=== PATIENT | female | born 1985 | race Two or more races ===

== ENCOUNTER 2018-10-19 08:39 | Emergency (ER) | payer OTHER ==
[~2018-10-19] VITALS: Ht 154.9 cm; Wt 51.3 kg
[2018-10-19] MEDS ORDERED: Dexamethasone 4mg/ml vial IVP ONE (09:15)
[2018-10-19] MEDS ORDERED: Acetaminophen 500mg (ES) tab ORAL ONE (09:15)
[2018-10-19] MEDS ORDERED: Ketorolac 60mg Inj IM ONE (09:15)
[2018-10-19] MEDS ORDERED: Metoclopramide 10mg/2ml Inj IM ONE (09:15)
[2018-10-19] MEDS ORDERED: RIBOFLAVIN100 MG PO (09:15)
[2018-10-19] MEDS ORDERED: Metoprolol Succinate XL 25mg tab ORAL ONE (09:15)
--- NOTE | 2018-10-19 09:16 | Emergency Room Report ---
History of Present Illness General Chief Complaint: Headache Source: Patient Present Illness HPI 33-year-old female presents with headache that started 4 days ago gradual in onset, not worse in the recumbent position no known aggravating relieving factors, severity is mild symptoms are constant, she does endorse an ache of her forehead, she denies any fevers chills chest pain shortness of breath no neck stiffness, patient states she also has the cyst on her forehead and in her hair she states they have been there for 3 years and 1 of them looked at, no pus or drainage. Patient presents for evaluation Allergies: Coded Allergies: No Known Allergies (Unverified , 10/19/18) Patient History Past Medical History: see triage record Last Menstrual Period: 08/2018 Now: No : 2 Para: 2 Reviewed Nursing Documentation: PMH: Agreed; PSxH: Agreed Nursing Documentation-PMH Hx Cardiac Problems: Yes - CHF Hx Hypertension: Yes Review of Systems All Other Systems: negative except mentioned in HPI Physical Exam Vital Signs Date Time Temp Pulse Resp B/P (MAP) Pulse Ox O2 Delivery O2 Flow Rate FiO2 10/19/18 08:51 97.5 120 18 125/95 (105) 98 Room Air Sp02 EP Interpretation: reviewed, normal General Appearance: well appearing, no apparent distress, alert Head: normocephalic, atraumatic Eyes: bilateral eye PERRL, bilateral eye EOMI ENT: uvula midline, moist mucus membranes Neck: supple, thyroid normal, supple/symm/no masses Respiratory: lungs clear, no respiratory distress, no retraction, no accessory muscle use Cardiovascular #1: normal peripheral pulses, no edema, no gallop, no murmur, tachycardia Gastrointestinal: non tender, soft, no guarding, no rebound Musculoskeletal: normal inspection Neurologic: alert, oriented x3 Psychiatric: mood/affect normal Skin: no rash, warm/dry, other - 1 cm cyst on her forehead that is mobile, not hard, soft, another cyst located right scalp 1.5 cm mobile slightly tender to palpation Medical Decision Making Diagnostic Impression: Primary Impression: Headache Qualified Codes: R51 - Headache Additional Impression: Cyst ER Course Based on the patient's history and physical there is very low clinical suspicion for significant intracranial pathology. There are no red flags of DOSS, not sudden in onset, not maximal in onset, no acute neurological findings, no fever with head stiffness. Low suspicion for subarachnoid hemorrhage, encephalitis, meningitis. Patient given headache cocktail Patient with elevated HR, patient states she did not take her metoprolol today. Patient given metoprolol in ER. Dispo home w/ return precautions Last Vital Signs Date Time Temp Pulse Resp B/P (MAP) Pulse Ox O2 Delivery O2 Flow Rate FiO2 10/19/18 08:51 97.5 120 18 125/95 (105) 98 Room Air Disposition: HOME, SELF-CARE Condition: Stable Scripts Riboflavin (RIBOFLAVIN) 100 Mg Tablet 400 MG PO DAILY, #90 TAB Prov: Mirza Woodson MD 10/19/18 Referrals: [facility],REFERRING (PCP) [facility]. [facility] Patient Instructions: General Headache Without Cause Additional Instructions: The patient was provided with discharge instructions, notified to follow-up with a primary care doctor and or specialist in the next 24-48 hours, and to return to the ED if they have worsening of their symptoms. Please note that this report is being documented using [employer] technology. This can lead to erroneous entry secondary to incorrect interpretation by the dictating instrument. PLEASE FOLLOW-UP WITH NEUROLOGY AND DERMATOLOGY Mirza Quesada MD Oct 19, 2018 09:16
--- NOTE | 2018-10-19 10:20 | NUR ---
ER DISCHARGE NOTE: Patient is cleared to be discharged per ERMD, pt is aox4, on room air, with stable vital signs. pt was given dc and prescription instructions, pt was able to verbalize understanding. pt is able to ambulate with steady gait. pt took all belongings.
[2018-10-19 11:13] VITALS: BP 125/95
[2018-10-19 11:24] VITALS: BP 116/87
== END 2018-10-19 10:20 | disposition home or self-care (01) ==
LOC: EMR 08:56
DX: R51 Headache (principal)
CPT/HCPCS: 81025; 96372; 96374; J1100; J2765; Z7502; 99284

== ENCOUNTER 2018-10-27 00:21 | Emergency (ER) | payer OTHER ==
[~2018-10-27] VITALS: Ht 154.9 cm; Wt 52.2 kg
[~2018-10-27 00:21] MED LIST: RIBOFLAVIN100 MG PO
--- NOTE | 2018-10-27 00:35 | NUR ---
ED Nurse Note: RECIEVED PT FROM HOME, HERE WITH C/O ABD PAIN AND SWELLING, PT HAS HX OF CHF AND LIVER ENLARGEMENT, DENIES CP, NO SOB OR LABORED BREATHING, PT GOWNED AND PLACED ON CARDIAC MONITORING, WILL RESUME CARE ORDERED AND CLOSELY MONITOR.
[2018-10-27] MEDS ORDERED: Ketorolac 30mg Inj IV ONE (01:00)
[2018-10-27 01:13] LABS: APPEARANCE,URINE CLEAR; BILIRUBIN, URINE NEGATIVE (NEGATIVE); GLUCOSE, URINE (UA) NEGATIVE (NEGATIVE); KETONES,URINE NEGATIVE (NEGATIVE); LEUKOCYTE ESTERASE ,URINE NEGATIVE (NEGATIVE); NITRITE,URINE NEGATIVE (NEGATIVE); PH,URINE 7 (4.5-8.0); PROTEIN,URINE NEGATIVE (NEGATIVE); UROBILINOGEN,URINE 4 MG/DL (0.0-1.0)
[2018-10-27 01:15] VITALS: BP 129/78
[2018-10-27 01:16] LABS: COLOR,URINE YELLOW
[2018-10-27 01:26] LABS: EOSINOPHILS % (AUTO) 1.4 % (0.0-3.0); HEMOGLOBIN 12.6 G/DL (12.0-16.0); LYMPHOCYTES % (AUTO) 18.6 % (20.0-45.0); MEAN CORPUSCULAR VOLUME 83 FL (80-99); MONOCYTES % (AUTO) 8.4 % (1.0-10.0); NEUTROPHILS % (AUTO) 70.6 % (45.0-75.0); PLATELET COUNT 302 K/UL (150-450); RED BLOOD COUNT 4.95 M/UL (4.20-5.40); RED CELL DISTRIBUTION WIDTH 17.2 % (11.6-14.8); WHITE BLOOD COUNT 7.9 K/UL (4.8-10.8)
--- NOTE | 2018-10-27 01:30 | Emergency Room Report ---
History of Present Illness General Chief Complaint: General Complaint Source: Patient Present Illness HPI 33-year-old female with a history of cirrhosis. She had a history of methamphetamine abuse but says she stopped for a long time now. She presents with chief complaint of abdominal pain. Pain is to the right back and upper quadrant area. She been told that she has a very enlarged liver. Pain is been ongoing for 4 weeks. She was here last week but did not mention it. No nausea no vomiting. No fever chills the pain is 8 out of 10. Nothing made it better. Nothing made it worse.. No urinary complaint. Allergies: Coded Allergies: No Known Allergies (Unverified , 10/19/18) Patient History Past Medical History: see triage record, old chart reviewed Past Surgical History: other Pertinent Family History: none Social History: Reports: drug use Last Menstrual Period: 08/21/18 Now: No Immunizations: other Reviewed Nursing Documentation: PMH: Agreed; PSxH: Agreed Nursing Documentation-PMH Past Medical History: No History, Except For Hx Hypertension: Yes Review of Systems Eye: Denies: eye pain, blurred vision ENT: Denies: ear pain, nose congestion, throat swelling Respiratory: Denies: cough, shortness of breath Cardiovascular: Denies: chest pain, palpitations Gastrointestinal: Reports: abdominal pain; Denies: diarrhea, nausea, vomiting Musculoskeletal: Denies: back pain, joint pain Skin: Denies: rash Neurological: Denies: headache, numbness Endocrine: Denies: increased thirst, increased urine Hematologic/Lymphatic: Denies: easy bruising All Other Systems: negative except mentioned in HPI Physical Exam Vital Signs Date Time Temp Pulse Resp B/P (MAP) Pulse Ox O2 Delivery O2 Flow Rate FiO2 10/27/18 00:23 98.1 118 19 122/84 (97) 96 Room Air Vitals with tachycardia Sp02 EP Interpretation: reviewed, normal General Appearance: no apparent distress, alert, thin Head: normocephalic, atraumatic Eyes: bilateral eye PERRL, bilateral eye EOMI, bilateral eye Scleral Injection ENT: hearing grossly normal, normal pharynx Neck: full range of motion, supple, no meningismus Respiratory: chest non-tender, lungs clear, normal breath sounds Cardiovascular #1: regular rate, rhythm, no murmur Gastrointestinal: normal bowel sounds, no mass, no bruit, non-distended, tenderness - Right upper quadrant, hepatomegaly Musculoskeletal: back normal, gait/station normal, normal range of motion Psychiatric: mood/affect normal Medical Decision Making Diagnostic Impression: Primary Impression: Abdominal pain Qualified Codes: R10.84 - Generalized abdominal pain Additional Impressions: Ascites of liver Methamphetamine abuse ER Course This patient presents with abdominal pain. She does have ascites and a very large liver. This most likely causing her pain. She does have cholelithiasis. She said she had a 2 cm gallstone. Bedside ultrasound confirmed. No evidence of cholecystitis. No evidence of any obstruction from the gallstone. She is seeing a liver specialist at [facility]. She still positive for amphetamine even though she denied using it for 2 years. Patient also noted that she has jaundice. Will send her home with labs that she can take to her doctor. CT/MRI/US Diagnostic Results CT/MRI/US Diagnostic Results : Imaging Test Ordered: CT abdomen and pelvis Impression Read by radiologist. Hepatomegaly measuring 20.6 cm. Gallstone. Cardiomegaly with anasarca. Ascites. Last Vital Signs Date Time Temp Pulse Resp B/P (MAP) Pulse Ox O2 Delivery O2 Flow Rate FiO2 10/27/18 00:23 98.1 118 19 122/84 (97) 96 Room Air Status: improved Disposition: HOME, SELF-CARE Condition: Stable Scripts Tramadol Hcl* (ULTRAM*) 50 Mg Tablet 50 MG ORAL Q6H PRN for For Pain, #12 TAB 0 Refills Prov: Yvan Hernandez MD 10/27/18 Additional Instructions: Follow-up with your doctor in 7 days. Return if symptoms worsen. Abstain from drugs and alcohol. Yvan Hernandez MD Oct 27, 2018 01:30
[2018-10-27 01:33] LABS: BLOOD UREA NITROGEN 22 mg/dL (7-18); CHLORIDE 100 MMOL/L (98-107); CREATININE 1.1 MG/DL (0.55-1.30); POTASSIUM 3.9 MMOL/L (3.5-5.1); SODIUM 136 MMOL/L (136-145)
[2018-10-27 01:35] LABS: ANION GAP 9 mmol/L (5-15); CALCIUM 8.4 MG/DL (8.5-10.1); CARBON DIOXIDE 27 MMOL/L (21-32); INR 1.4 (0.9-1.1)
[2018-10-27 01:43] LABS: ALANINE AMINOTRANSFERASE 20 U/L (12-78); ALBUMIN 3.1 G/DL (3.4-5.0); ALBUMIN/GLOBULIN RATIO 0.8 (1.0-2.7); ALKALINE PHOSPHATASE 189 U/L (46-116); ASPARTATE AMINO TRANSFERASE 22 U/L (15-37); BILIRUBIN,TOTAL 3.2 MG/DL (0.2-1.0)
[2018-10-27 02:06] LABS: BILIRUBIN,DIRECT 1.7 MG/DL (0.0-0.3)
--- NOTE | 2018-10-27 02:07 | Diagnostic Imaging Report ---
EXAM: CT Abdomen and Pelvis Without Intravenous Contrast CLINICAL HISTORY: ABD PAIN TECHNIQUE: Axial computed tomography images of the abdomen and pelvis without intravenous contrast. CTDI is 13.16 mGy and DLP is 606 mGy-cm. One or more of the following dose reduction techniques were used: automated exposure control, adjustment of the mA and or kV according to patient size, use of iterative reconstruction technique. COMPARISON: none FINDINGS: Lung bases: Unremarkable. No mass. No consolidation. Heart: Marked cardiomegaly. ABDOMEN: Liver: Hepatomegaly with liver measuring 20.6 cm. Gallbladder and bile ducts: Cholelithiasis. Gallstone at the neck of the gallbladder with mild distal distention. No ductal dilation. Pancreas: Unremarkable. No ductal dilation. Spleen: Unremarkable. No splenomegaly. Adrenals: Unremarkable. No mass. Kidneys and ureters: Unremarkable. No obstructing stones. No hydronephrosis. Stomach and bowel: Unremarkable. No obstruction. No mucosal thickening. PELVIS: Appendix: No findings to suggest acute appendicitis. Bladder: Unremarkable. No stones. Reproductive: Myomatous uterus. Vaginal tampon. ABDOMEN and PELVIS: Intraperitoneal space: Moderate ascites and diffuse mesenteric edema. No free air. Bones joints: No acute fracture. No dislocation. Soft tissues: Anasarca. Vasculature: Unremarkable. No abdominal aortic aneurysm. Lymph nodes: Unremarkable. No enlarged lymph nodes. IMPRESSION: 1. Cardiomegaly with anasarca and probable passive hepatic congestion concurrently. 2. Gallstone in the neck of the gallbladder with mild distal distention. Ultrasound could be considered in further evaluation if cholecystitis is suspected.
[2018-10-27] MEDS ORDERED: Morphine Sulfate 4mg/ml Inj (IV USE ONLY) IVP ONE (02:15)
[2018-10-27] MEDS ORDERED: TRAMADOL HCL50 MG ORAL (02:23)
[2018-10-27 02:31] VITALS: BP 121/63
--- NOTE | 2018-10-27 02:32 | NUR ---
ED Nurse Note: pt cleared to be d/c per ermd, pt discharge and aftercare instruction w/ prescription, pt education done via discussion and handout, pt advised to follow up with pcp or return to ed if changes in condition, vss, ambulatory w/ steady gait, accompanied by spouse member left w/ all belongings, iv d/c and id band removed.
== END 2018-10-27 02:31 | disposition home or self-care (01) ==
LOC: EMR 00:45
DX: R10.84 Generalized abdominal pain (principal); R18.8 Other ascites; K74.60 Unspecified cirrhosis of liver; I10 Essential (primary) hypertension; F15.10 Other stimulant abuse, uncomplicated; K80.20 Calculus of gallbladder without cholecystitis without obstruction
CPT/HCPCS: 36415; 74176; 80053; 80307; 80329; 81003; 81025; 82248; 83690; 85025; 85610; 85730; 96361; 96374; 96375; J1885; J2270; Z7502; 99284

== ENCOUNTER 2018-12-29 06:27 | Emergency (ER) | payer OTHER ==
[~2018-12-29] VITALS: Ht 154.9 cm; Wt 49.9 kg
[~2018-12-29 06:27] MED LIST changes: +TRAMADOL HCL50 MG ORAL
--- NOTE | 2018-12-29 06:57 | Emergency Room Report ---
History of Present Illness General Chief Complaint: Upper Respiratory Illness Source: Patient Present Illness HPI This patient states that for the past 4 days she has had a persistent cough. She states that she has had sputum production. She states that the phlegm is green and thick. She also has had body aches. Further discussion with the patient, and she states that she has a history of congestive heart failure of uncertain etiology. She states that this was diagnosed in about 1 year ago. She states she also has had some hepatitis that she was told was secondary to her congestive heart failure. She is on metoprolol, losartan and Lasix for her heart failure. She denies abdominal pain. She states that she did get her influenza vaccine. She states that her nephew had a cold and she was exposed to him. She denies chest pain. She denies shortness of breath. She denies headache or neck pain. She has no other complaints. Allergies: Coded Allergies: AZITHROMYCIN (Verified Allergy, Unknown, 12/29/18) Patient History Past Medical History: see triage record, CHF, other - Hepatitis Social History: Denies: smoking, alcohol use, drug use Reviewed Nursing Documentation: PMH: Agreed; PSxH: Agreed Nursing Documentation-PMH Past Medical History: No History, Except For Hx Hypertension: Yes Review of Systems All Other Systems: negative except mentioned in HPI Physical Exam Vital Signs Date Time Temp Pulse Resp B/P (MAP) Pulse Ox O2 Delivery O2 Flow Rate FiO2 12/29/18 06:31 100.4 160 20 125/67 (86) 96 Room Air Sp02 EP Interpretation: reviewed, normal General Appearance: no apparent distress, alert, GCS 15, non-toxic Head: normocephalic, atraumatic Eyes: bilateral eye PERRL, bilateral eye scleral icterus ENT: hearing grossly normal, normal pharynx, no angioedema, normal voice Neck: full range of motion, supple/symm/no masses Respiratory: chest non-tender, lungs clear, normal breath sounds, no respiratory distress, no retraction, no accessory muscle use, speaking full sentences Cardiovascular #1: no edema, tachycardia Gastrointestinal: normal bowel sounds, non tender, soft, no guarding, no rebound, distended - +fluid shift Genitourinary: no CVA tenderness Musculoskeletal: back normal, normal range of motion, gait/station normal, non- tender Neurologic: alert, motor strength/tone normal, oriented x3, sensory intact, responsive, speech normal Psychiatric: judgement/insight normal, memory normal, mood/affect normal, no suicidal/homicidal ideation Skin: jaundice Lymphatic: no adenopathy Medical Decision Making Diagnostic Impression: Primary Impression: Ascites Additional Impressions: Fever Tachycardia Pneumonia Jaundice CHF (congestive heart failure) ER Course This patient meets criteria for sepsis. She has findings on chest x-ray consistent with pneumonia. She has a history of congestive heart failure and has ascites and hyperbilirubinemia that is likely secondary to her heart failure. She is also quite tachycardic in the emergency department, on arrival , her heart rate was in the 160s. She did state that she had not taken her morning metoprolol. I did give the patient her usual dose of metoprolol. Her heart rate improved into the 130s but still was significantly tachycardic. Patient's white blood cell count is elevated at over 16. Patient was given broad-spectrum antibiotics for pneumonia. I recommended this patient be admitted to the ICU stepdown unit for sepsis, pneumonia and congestive heart failure. However, the patient stated that she needed to attend to a personal matter and states that she is unable to be admitted to the hospital. I did discuss the dangers associated with leaving AGAINST MEDICAL ADVICE to include and other significant morbidities such as decompensated heart failure and intubation and critical illness. The patient indicated understanding. The patient is competent and able to make her own medical decisions. The patient was educated that she is welcome to return if she changes her mind or after she attends to her personal matter. The patient indicated understanding and intention to do so. This patient is critically ill. This patient required complex medical decision- making, aggressive intervention, extensive laboratory workup and monitoring. Critical care time: 40 minutes. Laboratory Tests Test 12/29/18 06:53 12/29/18 06:58 White Blood Count 16.6 K/UL (4.8-10.8) H Red Blood Count 5.12 M/UL (4.20-5.40) Hemoglobin 13.0 G/DL (12.0-16.0) Hematocrit 40.8 % (37.0-47.0) Mean Corpuscular Volume 80 FL (80-99) Mean Corpuscular Hemoglobin 25.5 PG (27.0-31.0) L Mean Corpuscular Hemoglobin Concent 32.0 G/DL (32.0-36.0) Red Cell Distribution Width 17.3 % (11.6-14.8) H Platelet Count 311 K/UL (150-450) Mean Platelet Volume 5.3 FL (6.5-10.1) L Neutrophils (%) (Auto) 84.7 % (45.0-75.0) H Lymphocytes (%) (Auto) 9.9 % (20.0-45.0) L Monocytes (%) (Auto) 5.0 % (1.0-10.0) Eosinophils (%) (Auto) 0.0 % (0.0-3.0) Basophils (%) (Auto) 0.4 % (0.0-2.0) Prothrombin Time 14.7 SEC (9.30-11.50) H Prothrombin Time INR 1.4 (0.9-1.1) H PTT 31 SEC (23-33) Sodium Level 132 MMOL/L (136-145) L Potassium Level 3.2 MMOL/L (3.5-5.1) L Chloride Level 95 MMOL/L (98-107) L Carbon Dioxide Level 25 MMOL/L (21-32) Anion Gap 12 mmol/L (5-15) Blood Urea Nitrogen 16 mg/dL (7-18) Creatinine 0.7 MG/DL (0.55-1.30) Estimate Glomerular Filtration Rate > 60 mL/min (>60) Glucose Level 155 MG/DL (74-106) H Lactic Acid Level 1.60 mmol/L (0.4-2.0) Calcium Level 8.3 MG/DL (8.5-10.1) L Phosphorus Level 2.7 MG/DL (2.5-4.9) Magnesium Level 1.5 MG/DL (1.8-2.4) L Total Bilirubin 4.4 MG/DL (0.2-1.0) H Direct Bilirubin 1.9 MG/DL (0.0-0.3) H Aspartate Amino Transferase (AST) 24 U/L (15-37) Alanine Aminotransferase (ALT) 20 U/L (12-78) Alkaline Phosphatase 200 U/L (46-116) H Total Creatine Kinase 49 U/L (26-308) Creatine Kinase MB 0.5 NG/ML (0.0-3.6) Creatine Kinase MB Relative Index 1.0 Troponin I 0.015 ng/mL (0.000-0.056) Total Protein 7.8 G/DL (6.4-8.2) Albumin 3.2 G/DL (3.4-5.0) L Globulin 4.6 g/dL Albumin/Globulin Ratio 0.7 (1.0-2.7) L Urine Color Yellow Urine Appearance Clear Urine pH 5 (4.5-8.0) Urine Specific [place] 1.015 (1.005-1.035) Urine Protein 3+ (NEGATIVE) H Urine Glucose (UA) Negative (NEGATIVE) Urine Ketones Negative (NEGATIVE) Urine Blood 4+ (NEGATIVE) H Urine Nitrite Negative (NEGATIVE) Urine Bilirubin Negative (NEGATIVE) Urine Urobilinogen 1 MG/DL (0.0-1.0) H Urine Leukocyte Esterase 1+ (NEGATIVE) H Urine RBC 5-10 /HPF (0 - 2) H Urine WBC 0-2 /HPF (0 - 2) Urine Squamous Epithelial Cells Few /LPF (NONE/OCC) Urine Bacteria Few /HPF (NONE) EKG Diagnostic Results Rate: tachycardiac Rhythm: other - S.tachycardia ST Segments: no acute changes Other Impression Qwaves in V1, V2, aVL Rhythm Strip Diag. Results EP Interpretation: yes Rate: 160's Rhythm: no PVC's, no ectopy, other - S.tachycardia Chest X-Ray Diagnostic Results Chest X-Ray Diagnostic Results : Chest X-Ray Ordered: Yes # of Views/Limited/Complete: 1 View Indication: Other Interpretation: no effusion, no pneumothorax, other - RLL opacity, Cardiomegaly Impression: Other - See above. Electronically Signed by: Mickie Holman DO Last Vital Signs Date Time Temp Pulse Resp B/P (MAP) Pulse Ox O2 Delivery O2 Flow Rate FiO2 12/29/18 06:31 100.4 160 20 125/67 (86) 96 Room Air Status: improved Disposition: AGAINST MEDICAL ADVICE Condition: Serious Mickie Holman DO Dec 29, 2018 06:57
[2018-12-29 06:58] VITALS: BP 125/67
[2018-12-29 07:28] LABS: BASOPHILS % (AUTO) 0.4 % (0.0-2.0); HEMATOCRIT 40.8 % (37.0-47.0); LYMPHOCYTES % (AUTO) 9.9 % (20.0-45.0); MEAN CORPUSCULAR VOLUME 80 FL (80-99); NEUTROPHILS % (AUTO) 84.7 % (45.0-75.0); PLATELET COUNT 311 K/UL (150-450); RED BLOOD COUNT 5.12 M/UL (4.20-5.40); RED CELL DISTRIBUTION WIDTH 17.3 % (11.6-14.8); WHITE BLOOD COUNT 16.6 K/UL (4.8-10.8)
--- NOTE | 2018-12-29 07:35 | Diagnostic Imaging Report ---
EXAM: XR Chest, 1 View CLINICAL HISTORY: COUGH TECHNIQUE: Frontal view of the chest. COMPARISON: No relevant prior studies available. FINDINGS: Lungs: Likely patchy right base opacity could represent pneumonia in the proper clinical context. Pleural space: Unremarkable. No pneumothorax. Heart: Cardiomegaly and pericardial effusion seen on comparison CT overall similar in appearance. Mediastinum: Unremarkable. Bones/joints: Unremarkable. IMPRESSION: 1. Likely patchy right base opacity could represent pneumonia in the proper clinical context. 2. Cardiomegaly and pericardial effusion seen on comparison CT overall similar in appearance. 3. Recommend PA and lateral chest radiographs or cross-sectional imaging if there is continued clinical ambiguity. 4. Recommend follow-up radiographs in 8-10 weeks to document resolution
[2018-12-29 07:42] LABS: APPEARANCE,URINE CLEAR; BILIRUBIN, URINE NEGATIVE (NEGATIVE); GLUCOSE, URINE (UA) NEGATIVE (NEGATIVE); KETONES,URINE NEGATIVE (NEGATIVE); LEUKOCYTE ESTERASE ,URINE 1+ (NEGATIVE); NITRITE,URINE NEGATIVE (NEGATIVE); PH,URINE 5 (4.5-8.0); PROTEIN,URINE 3+ (NEGATIVE); UROBILINOGEN,URINE 1 MG/DL (0.0-1.0)
[2018-12-29 07:43] LABS: INR 1.4 (0.9-1.1)
[2018-12-29 07:49] LABS: ANION GAP 12 mmol/L (5-15); BLOOD UREA NITROGEN 16 mg/dL (7-18); CALCIUM 8.3 MG/DL (8.5-10.1); CARBON DIOXIDE 25 MMOL/L (21-32); CHLORIDE 95 MMOL/L (98-107); CREATININE 0.7 MG/DL (0.55-1.30); POTASSIUM 3.2 MMOL/L (3.5-5.1); SODIUM 132 MMOL/L (136-145)
[2018-12-29 07:50] LABS: COLOR,URINE YELLOW
[2018-12-29] MEDS ORDERED: METOPROLOL TART25 MG ORAL (07:52)
[2018-12-29] MEDS ORDERED: ASPIR 8181 MG ORAL (07:53)
[2018-12-29] MEDS ORDERED: FUROSEMIDE40 MG ORAL (07:53)
[2018-12-29] MEDS ORDERED: LOSARTAN POTASS25 MG ORAL (07:53)
[2018-12-29] MEDS ORDERED: Metoprolol Succinate XL 25mg tab ORAL ONE (08:00)
[2018-12-29] MEDS ORDERED: cefTRIAXone 1 GM in NS 55 ML IVPB ONE (08:00)
[2018-12-29 08:02] LABS: ALANINE AMINOTRANSFERASE 20 U/L (12-78); ALBUMIN 3.2 G/DL (3.4-5.0); ALBUMIN/GLOBULIN RATIO 0.7 (1.0-2.7); ALKALINE PHOSPHATASE 200 U/L (46-116); ASPARTATE AMINO TRANSFERASE 24 U/L (15-37); BILIRUBIN,TOTAL 4.4 MG/DL (0.2-1.0); CKMB 0.5 NG/ML (0.0-3.6); CREATINE KINASE 49 U/L (26-308); PHOSPHORUS 2.7 MG/DL (2.5-4.9)
[2018-12-29 08:03] LABS: BILIRUBIN,DIRECT 1.9 MG/DL (0.0-0.3)
[2018-12-29] MEDS ORDERED: LEVAQUIN750 MG ORAL (09:06)
[2018-12-29] MEDS ORDERED: IBUPROFEN600 MG ORAL (09:06)
[2018-12-29 09:29] VITALS: BP 122/81
== END 2018-12-29 09:15 | disposition left against medical advice (07) ==
LOC: EMR 07:05
DX: J18.9 Pneumonia, unspecified organism (principal); R18.8 Other ascites; R50.9 Fever, unspecified; R00.0 Tachycardia, unspecified; R17 Unspecified jaundice; I11.0 Hypertensive heart disease with heart failure; I50.9 Heart failure, unspecified
CPT/HCPCS: 36415; 71045; 80053; 81003; 82248; 82550; 82553; 83605; 83735; 84100; 84484; 85025; 85610; 85730; 87040; 93005; 96365; J0696; Z7502; 99291